=== PATIENT | female | born 1960 | race Caucasian/White ===

== ENCOUNTER → 2016-11-04 | Outpatient (CLI) | payer BC ==
[~2016-11-04] MED LIST: ALBU6.7H INH; CELE200C PO; MONT10TA9 PO; OMEP40CA6 PO; [UNRECOGNIZED DRUG - REMARK] PO
== END ==
LOC: STAR 08:07
PROVIDERS: ATTEND Orthopaedic Surgery
DX: Z02.9 Encounter for administrative examinations, unspecified (principal)

== ENCOUNTER 2016-11-10 06:27 | Day surgery (SDC) | payer BC ==
[~2016-11-10] VITALS: Ht 177.8 cm; Wt 119.0 kg
[~2016-11-10 06:27] MED LIST changes: +BUPIVACAINE/PF 0.5% ONE; +EPINEPHRINE 1 MG/ML, 1ML ONE
[2016-11-10] MEDS ORDERED: LACTATED RINGERS 1,000 ML IV SCH (06:44)
[2016-11-10] MEDS ORDERED: FENTANYL PF 100 MCG/2ML ONE ×2 (08:02→08:49)
[2016-11-10] MEDS ORDERED: MIDAZOLAM 1 MG/ML, 2ML ONE (08:03)
[2016-11-10] MEDS ORDERED: FENTANYL PF 100 MCG/2ML IV PRN (08:30)
[2016-11-10] MEDS ORDERED: ONDANSETRON 2MG/ML, 2ML IVPush PRN (08:30)
[2016-11-10] MEDS ORDERED: MEPERIDINE/PF 25MG/0.5ML IVPush PRN (08:30)
[2016-11-10] MEDS ORDERED: hydrALAzine 20 MG/ML, 1ML IV PRN (08:30)
[2016-11-10] MEDS ORDERED: ONDANSETRON 2MG/ML, 2ML ONE (08:30)
[2016-11-10] MEDS ORDERED: METOCLOPRAMIDE 5 MG/ML, 2ML IV PRN (08:30)
[2016-11-10] MEDS ORDERED: CEFAZOLIN 1,000 MG ONE (08:30)
[2016-11-10] MEDS ORDERED: LABETALOL 5MG/ML, 20ML IV PRN (08:30)
[2016-11-10] MEDS ORDERED: PROMETHAZINE 25 MG/ML, 1ML IV PRN (08:30)
[2016-11-10] MEDS ORDERED: ACETAMINOPHEN 325 MG TABLET PO PRN (08:30)
[2016-11-10] MEDS ORDERED: MIDAZOLAM 1 MG/ML, 2ML IV PRN (08:30)
[2016-11-10] MEDS ORDERED: ALBUTEROL/IPRATROPIUM 2.5MG/0.5MG, 3 ML NPPB PRN (08:30)
[2016-11-10] MEDS ORDERED: PROPOFOL 10 MG/ML, 20ML ONE (08:30)
[2016-11-10] MEDS ORDERED: DEXAMETHASONE 4 MG/ML, 5ML ONE (08:30)
[2016-11-10] MEDS ORDERED: OXYcodone 5 MG/5 ML ORAL.SOL UDC PO PRN (08:30)
[2016-11-10] MEDS ORDERED: LIDOCAINE/PF 1.5%-EPI 1:200K, 30ML INFIL ONE (08:47)
[2016-11-10] MEDS ORDERED: TEMPLATE NON-FORMULARY MED. (Omeprazole** 40 MG) PO SCH (09:00)
[2016-11-10] MEDS ORDERED: MONTELUKAST 10 MG TABLET PO SCH (09:00)
[2016-11-10] MEDS ORDERED: TEMPLATE NON-FORMULARY MED. (Albuterol Sulfate (Proventil Hfa) 2 PUFF(S)) INH SCH (09:00)
[2016-11-10] MEDS ORDERED: ALBUTEROL SULFATE 2.5 MG/3 ML ONE (09:09)
[2016-11-10] MEDS ORDERED: ALBUTEROL/IPRATROPIUM 2.5MG/0.5MG, 3 ML ONE (09:10)
[2016-11-10] MEDS ORDERED: ACETAMINOPHEN 325 MG/10.15 ML UDC ONE (09:15)
[2016-11-10] MEDS ORDERED: ACETAMINOPHEN 650 MG/20.3 ML UDC ONE (09:15)
[2016-11-10] MEDS ORDERED: HYDROmorphone 1 MG/ML, 1ML ONE ×2 (09:16→09:51)
[2016-11-10] MEDS ORDERED: OXYcodone 5 MG/5 ML ORAL.SOL UDC ONE (09:16)
[2016-11-10] MEDS: HYDROmorphone 1 MG/ML, 1ML IV PRN ×4 (09:23→10:08)
== END 2016-11-10 13:20 ==
LOC: OUT 06:27
PROVIDERS: ATTEND Orthopaedic Surgery
DX: M17.11 Unilateral primary osteoarthritis, right knee (principal); M23.41 Loose body in knee, right knee; M94.261 Chondromalacia, right knee; K21.9 Gastro-esophageal reflux disease without esophagitis; J45.909 Unspecified asthma, uncomplicated; Z88.5 Allergy status to narcotic agent; Z88.8 Allergy status to other drugs, medicaments and biological substances
CPT/HCPCS: 29877; 94640; J0171; J0690; J1100; J1170; J2250; J2405; J2704; J3010; J3490; J7120; J7620